=== PATIENT | female | born 1965 | race Caucasian/White ===

== ENCOUNTER 2017-01-12 18:15 | Emergency (ER) | payer OTHER ==
[~2017-01-12] VITALS: Ht 170.2 cm; Wt 90.7 kg
[~2017-01-12 18:15] MED LIST: ANTACID650 MG PO; BYSTOLIC10 MG PO; CELLCEPT500 MG PO; MAGNESIUM250 M1 PO; NEXIUM 40 MG CA40 M1 PO; PREDNISONE 10 M10 MG PO; PROGRAF 1 MG1 MG PO; [UNRECOGNIZED DRUG - OTHER] PO
[2017-01-12] MEDS ORDERED: NORVASC10 MG PO (18:31)
[2017-01-12] MEDS ORDERED: ALPRAZOLAM 0.50.5 M1 PO (18:31)
[2017-01-12] MEDS ORDERED: ASPIR 8181 MG PO (18:31)
[2017-01-12] MEDS ORDERED: VENTOLIN HFA 1818 GM INH (18:31)
[2017-01-12] MEDS ORDERED: CARISOPRODOL 3350 MG PO (18:32)
[2017-01-12] MEDS ORDERED: CALCIUM CARBO1250 MG PO (18:32)
[2017-01-12] MEDS ORDERED: MS CONTIN15 MG PO (18:33)
[2017-01-12] MEDS ORDERED: ZYRTEC10 M5 PO (18:33)
[2017-01-12] MEDS ORDERED: TOPROL XL100 MG PO (18:33)
[2017-01-12] MEDS ORDERED: MS CONTIN 30 MG30 MG PO (18:34)
[2017-01-12] MEDS ORDERED: ZOFRAN ODT4 M1 PO (18:34)
[2017-01-12] MEDS ORDERED: TOPAMAX 25 MG T25 M1 PO (18:35)
[2017-01-12] MEDS ORDERED: IMITREX 25 MG T25 M1 PO (18:35)
[2017-01-12] MEDS ORDERED: XARELTO20 MG PO (18:35)
[2017-01-12] MEDS ORDERED: ACYCLOVIR 400400 MG PO (19:30)
[2017-01-12 19:47] VITALS: BP 161/89
== END 2017-01-12 19:49 | disposition home or self-care (01) ==
LOC: ER 18:15
DX: R21 Rash and other nonspecific skin eruption (principal); I10 Essential (primary) hypertension; Z88.1 Allergy status to other antibiotic agents; Z88.5 Allergy status to narcotic agent; Z88.0 Allergy status to penicillin; Z88.2 Allergy status to sulfonamides